=== PATIENT | female | born 1955 | race Caucasian/White ===

== ENCOUNTER 2016-08-02 09:06 | Day surgery (SDC) | payer OTHER ==
[~2016-08-02] VITALS: Ht 160 cm; Wt 70.7 kg
[2016-08-02 09:43] VITALS: Ht 160 cm; Wt 70.7 kg
[2016-08-02] MEDS ORDERED: PROPOFOL 20 ML ONE (09:49)
[2016-08-02] MEDS ORDERED: ZYPREXA (09:50)
[2016-08-02] MEDS ORDERED: OMEPRAZOLE (09:50)
[2016-08-02] MEDS ORDERED: LEVOXYL (09:50)
[2016-08-02] MEDS ORDERED: ALLOPURINOL (09:50)
[2016-08-02 09:54] VITALS: BP 131/70; PULSE 72; RESP 24
[2016-08-02 11:05] VITALS: BP 140/70; RESP 20
[2016-08-02 11:20] VITALS: BP 110/84; RESP 20
--- NOTE | 2016-08-02 13:51 | GILP ---
DATE OF PROCEDURE: NAME OF PROCEDURES: Colonoscopy and biopsy. SURGEON: Elina Burks MD PREOPERATIVE DIAGNOSIS: Screening colonoscopy. POSTOPERATIVE DIAGNOSES: 1. Colonoscopy all the way to the cecum. 2. Right colon polyp was removed using the biopsy forceps. 3. Internal hemorrhoids. INDICATION FOR THE PROCEDURE: Ms. Emily Herrera is a 60-year-old female patient who was scheduled for screening colonoscopy. The procedure and possible complications are well explained to the patient, she understood and conse nted to the procedure. DESCRIPTION OF PROCEDURE: Under the influence of anesthesia, the colonoscope was carefully introduc ed in the rectum and under direct vision, it was advanced all the way to the cecum. FINDINGS: The patient had a right colon polyp and it was removed using the biopsy forceps. She had internal hemorrhoids. She tolerated the procedure very well and there was no complication from the procedure. At the end of the procedure, she was awake with stable vital signs and she was discharged home to the care of h er family. IMPRESSION: 1. Colonoscopy all the way to the cecum. 2. Right colon polyp was removed using the biopsy forceps. 3. Internal hemorrhoids. PLAN: 1. Await histopathology report. 2. Next screening colonoscopy in 5 years. Dictated By: ELINA NEWTON/TOMEKA Conf#: [id number] DID#: [id number]
== END 2016-08-02 11:32 | disposition home or self-care (01) ==
LOC: GIL 09:06
PROVIDERS: ATTEND Internal Medicine Gastroenterology
DX: Z12.11 Encounter for screening for malignant neoplasm of colon (principal); K63.5 Polyp of colon; K64.8 Other hemorrhoids; I10 Essential (primary) hypertension; E78.5 Hyperlipidemia, unspecified
CPT/HCPCS: 45380; 88305; Z7610